=== PATIENT | female | born 1970 | race Caucasian/White ===

== ENCOUNTER 2024-03-24 21:59 | Emergency (ER) | payer OTHER ==
[~2024-03-24] VITALS: Ht 172.7 cm; Wt 85.3 kg
[2024-03-24] MEDS ORDERED: MECLIZINE HYD12.5 MG PO (22:21)
[2024-03-24] MEDS ORDERED: LEADER NATUR1000 MCG PO (22:23)
[2024-03-24] MEDS ORDERED: ASPIRIN ADULT L81 M2 PO (22:24)
[2024-03-24] MEDS ORDERED: ALBUTEROL SULFATE HF (22:24)
[2024-03-24] MEDS ORDERED: NATURE'S BLEND100 M2 PO (22:24)
[2024-03-24] MEDS ORDERED: AMLODIPINE BESYL5 MG PO (22:24)
[2024-03-24] MEDS ORDERED: VITAMIN D350 MCG PO (22:24)
[2024-03-24] MEDS ORDERED: Ondansetron Hydrochloride 4 MG TAB PO ONE (22:25)
[2024-03-24] MEDS ORDERED: FAMOTIDINE40 MG PO (22:25)
[2024-03-24] MEDS ORDERED: DULERA 100 MCG-13 GM INH (22:25)
[2024-03-24] MEDS ORDERED: ARIPIPRAZOLE5 MG PO (22:25)
[2024-03-24] MEDS ORDERED: LISINOPRIL40 MG PO (22:26)
[2024-03-24] MEDS ORDERED: JANUVIA100 MG PO (22:26)
[2024-03-24] MEDS ORDERED: HYDROCHLOROTHIA25 M1 PO (22:26)
[2024-03-24] MEDS ORDERED: SERTRALINE HYD100 MG PO (22:27)
[2024-03-24] MEDS ORDERED: ATORVASTATIN CA40 M1 PO (22:27)
[2024-03-24] MEDS ORDERED: TRAZODONE50 MG PO (22:27)
[2024-03-24] MEDS ORDERED: NON-ASPIRIN EX500 M1 PO (22:28)
[2024-03-24] MEDS ORDERED: MAGNESIUM CITRATE 296 ML BOT PO ONE (23:05)
== END 2024-03-24 23:49 | disposition home or self-care (01) ==
LOC: ED 21:59
DX: K59.00 Constipation, unspecified (principal); R42 Dizziness and giddiness; R51.9 Headache, unspecified; I10 Essential (primary) hypertension; K21.9 Gastro-esophageal reflux disease without esophagitis; E11.9 Type 2 diabetes mellitus without complications; Z91.030 Bee allergy status; Z88.2 Allergy status to sulfonamides; Z88.0 Allergy status to penicillin; Z79.899 Other long term (current) drug therapy; Z79.82 Long term (current) use of aspirin

== ENCOUNTER → 2024-04-24 | Outpatient (CLI) | payer OTHER ==
[~2024-04-24] MED LIST: ALBUTEROL SULFATE HF; AMLODIPINE BESYL5 MG PO; ARIPIPRAZOLE5 MG PO; ASPIRIN ADULT L81 M2 PO; ATORVASTATIN CA40 M1 PO; DULERA 100 MCG-13 GM INH; FAMOTIDINE40 MG PO; HYDROCHLOROTHIA25 M1 PO; JANUVIA100 MG PO; LEADER NATUR1000 MCG PO; LISINOPRIL40 MG PO; MECLIZINE HYD12.5 MG PO; NATURE'S BLEND100 M2 PO; NON-ASPIRIN EX500 M1 PO; SERTRALINE HYD100 MG PO; TRAZODONE50 MG PO; VITAMIN D350 MCG PO
[2024-04-24 11:59] LABS: BASO # 0.1 10*3/uL (0.0-0.1); EOS # 0.2 10*3/uL (0.0-0.4); EOS % 2.7 % (1.0-4.0); HEMATOCRIT 40.9 % (37.0-47.0); LYMPH # 2.3 10*3/uL (1.3-4.4); LYMPH % 32.2 % (27.0-41.0); MEAN CELL VOLUME 93.4 fl (81.0-99.0); MEAN CORPUSCULAR HGB 32.4 pg (27.0-31.0); MEAN CORPUSCULAR HGB CONC 34.7 g/dl (33.0-37.0); MEAN PLATELET VOLUME 10.9 fl (9.6-12.3); MONO # 0.5 10*3/uL (0.1-1.0); MONO % 6.8 % (3.0-9.0); PLATELET COUNT AUTOMATED 189 10*3/uL (130-400); RED BLOOD COUNT 4.38 10*6/uL (4.10-5.10); RED CELL DISTRI WIDTH 14.3 % (0-14.5)
[2024-04-24 12:06] LABS: URINE CREATININE RANDOM 40.49 mg/dL
[2024-04-24 12:23] LABS: BILIRUBIN Negative (Negative); BLOOD Negative (Negative); CLARITY Clear (Clear); COLOR Yellow (Yellow); GLUCOSE Negative (Negative); KETONE Negative (Negative); LEUKO ESTERASE Negative (Negative); NITRITE Negative (Negative); PH 5.5 (4.5-8.0); SPECIFIC GRAVITY <= 1.005 (1.001-1.030); UROBILINOGEN 0.2 E.U./dl (0.0-1.0)
[2024-04-24 12:37] LABS: RBC 0-2 rbc/hpf (0-2); WBC 0-2 wbc/hpf (0-5)
[2024-04-24 12:38] LABS: BUN 7 mg/dl (9-23); CHLORIDE 112 mmol/L (98-107); POTASSIUM 3.8 mmol/L (3.4-5.1)
== END | disposition home or self-care (01) ==
LOC: LAB 11:29
PROVIDERS: ATTEND Internal Medicine Nephrology
DX: E11.22 Type 2 diabetes mellitus with diabetic chronic kidney disease (principal); N17.9 Acute kidney failure, unspecified

== ENCOUNTER 2024-06-07 03:21 | Emergency (ER) | payer OTHER ==
[~2024-06-07] VITALS: Ht 203.2 cm; Wt 77.1 kg
[2024-06-07] MEDS ORDERED: Dexamethasone Sodium Phospha 20 MG/5 ML VIAL IM ONE (03:35)
[2024-06-07] MEDS ORDERED: diphenhydrAMINE hydrochloride 50 MG/ML VIAL IM ONE (03:35)
[2024-06-07] MEDS ORDERED: MEDROL DOSEPAK4 MG PO (04:02)
== END 2024-06-07 04:10 | disposition home or self-care (01) ==
LOC: ED 03:21
DX: L29.9 Pruritus, unspecified (principal); T42.6X5A Adverse effect of other antiepileptic and sedative-hypnotic drugs, initial encounter; I10 Essential (primary) hypertension; M19.90 Unspecified osteoarthritis, unspecified site; E11.9 Type 2 diabetes mellitus without complications; Z91.030 Bee allergy status; Z88.2 Allergy status to sulfonamides; Z88.0 Allergy status to penicillin; Y92.89 Other specified places as the place of occurrence of the external cause

== ENCOUNTER → 2024-06-18 | Outpatient (CLI) | payer OTHER ==
[~2024-06-18] MED LIST changes: +MEDROL DOSEPAK4 MG PO; +METHOCARBAMOL500 M1 PO; +VIBRAMYCIN100 MG PO
== END | disposition home or self-care (01) ==
LOC: RESCLI 01:37
PROVIDERS: ATTEND Internal Medicine
DX: T78.40XA Allergy, unspecified, initial encounter (principal); R55 Syncope and collapse; F32.9 Major depressive disorder, single episode, unspecified; G47.33 Obstructive sleep apnea (adult) (pediatric); B19.20 Unspecified viral hepatitis C without hepatic coma; J44.9 Chronic obstructive pulmonary disease, unspecified; F17.210 Nicotine dependence, cigarettes, uncomplicated; E78.5 Hyperlipidemia, unspecified; E11.9 Type 2 diabetes mellitus without complications; K21.9 Gastro-esophageal reflux disease without esophagitis; I10 Essential (primary) hypertension; Z88.0 Allergy status to penicillin; Z88.8 Allergy status to other drugs, medicaments and biological substances; Z91.041 Radiographic dye allergy status; Z79.899 Other long term (current) drug therapy; X58.XXXA Exposure to other specified factors, initial encounter

== ENCOUNTER → 2024-06-25 | Outpatient (CLI) | payer OTHER ==
[2024-06-25 15:13] LABS: BASO % 0.2 % (0.0-1.0); HEMATOCRIT 42.5 % (37.0-47.0); LYMPH # 1.1 10*3/uL (1.3-4.4); LYMPH % 9.8 % (27.0-41.0); MEAN CORPUSCULAR HGB 31.2 pg (27.0-31.0); MEAN CORPUSCULAR HGB CONC 33.9 g/dl (33.0-37.0); MEAN PLATELET VOLUME 11.2 fl (9.6-12.3); MONO # 0.2 10*3/uL (0.1-1.0); MONO % 1.6 % (3.0-9.0); NEUT # 9.4 10*3/uL (2.3-7.9); NEUT % 87.3 % (47.0-73.0); PLATELET COUNT AUTOMATED 198 10*3/uL (130-400); RED BLOOD COUNT 4.62 10*6/uL (4.10-5.10); RED CELL DISTRI WIDTH 12.8 % (0-14.5); WHITE BLOOD COUNT 10.8 10*3/uL (4.8-10.8)
[2024-06-25 15:14] LABS: BILIRUBIN Negative (Negative); BLOOD Negative (Negative); CLARITY Clear (Clear); COLOR Yellow (Yellow); GLUCOSE 3+ (Negative); KETONE Negative (Negative); LEUKO ESTERASE Negative (Negative); NITRITE Negative (Negative); PH 5.5 (4.5-8.0); UROBILINOGEN 0.2 E.U./dl (0.0-1.0)
[2024-06-25 15:29] LABS: WBC 0-2 wbc/hpf (0-5); YEAST TRACE
== END | disposition home or self-care (01) ==
LOC: LAB 14:49
PROVIDERS: ATTEND Internal Medicine Nephrology
DX: E11.22 Type 2 diabetes mellitus with diabetic chronic kidney disease (principal); N18.9 Chronic kidney disease, unspecified; N17.9 Acute kidney failure, unspecified

== ENCOUNTER 2024-06-28 20:15 | Emergency (ER) | payer OTHER ==
[~2024-06-28] VITALS: Ht 170.1 cm; Wt 83.9 kg
[~2024-06-28 20:15] MED LIST changes: -METHOCARBAMOL500 M1 PO; -VIBRAMYCIN100 MG PO
[2024-06-28 20:39] LABS: BILIRUBIN Negative (Negative); BLOOD Negative (Negative); CLARITY Clear (Clear); COLOR Yellow (Yellow); GLUCOSE Trace (Negative); KETONE Negative (Negative); LEUKO ESTERASE Trace (Negative); NITRITE Negative (Negative); PH 5.5 (4.5-8.0)
[2024-06-28 21:09] LABS: BACTERIA 1+
[2024-06-28] MEDS ORDERED: METHOCARBAMOL 500 MG TAB PO ONE (21:15)
[2024-06-28] MEDS ORDERED: METHOCARBAMOL500 M1 PO (21:25)
[2024-06-28] MEDS ORDERED: VIBRAMYCIN100 MG PO (21:25)
== END 2024-06-28 21:32 | disposition home or self-care (01) ==
LOC: ED 20:15
PROVIDERS: Internal Medicine
DX: S16.1XXA Strain of muscle, fascia and tendon at neck level, initial encounter (principal); L70.0 Acne vulgaris; I10 Essential (primary) hypertension; E11.9 Type 2 diabetes mellitus without complications; M19.90 Unspecified osteoarthritis, unspecified site; Z91.030 Bee allergy status; Z88.2 Allergy status to sulfonamides; Z88.0 Allergy status to penicillin; Z79.899 Other long term (current) drug therapy; X58.XXXA Exposure to other specified factors, initial encounter; Y93.89 Activity, other specified; Y92.009 Unspecified place in unspecified non-institutional (private) residence as the place of occurrence of the external cause; Y99.8 Other external cause status

== ENCOUNTER → 2024-07-27 | Outpatient (CLI) | payer OTHER ==
[~2024-07-27] MED LIST changes: +METHOCARBAMOL500 M1 PO; +VIBRAMYCIN100 MG PO
[2024-07-27 10:14] LABS: BASO # 0.1 10*3/uL (0.0-0.1); BASO % 0.7 % (0.0-1.0); EOS # 0.1 10*3/uL (0.0-0.4); EOS % 1.9 % (1.0-4.0); HEMATOCRIT 47.1 % (37.0-47.0); LYMPH % 26.1 % (27.0-41.0); MEAN CELL VOLUME 90.6 fl (81.0-99.0); MEAN CORPUSCULAR HGB 30.6 pg (27.0-31.0); MEAN CORPUSCULAR HGB CONC 33.8 g/dl (33.0-37.0); MEAN PLATELET VOLUME 10.7 fl (9.6-12.3); MONO # 0.5 10*3/uL (0.1-1.0); MONO % 6.6 % (3.0-9.0); NEUT # 4.8 10*3/uL (2.3-7.9); NEUT % 63.8 % (47.0-73.0); PLATELET COUNT AUTOMATED 176 10*3/uL (130-400); RED CELL DISTRI WIDTH 12.8 % (0-14.5); WHITE BLOOD COUNT 7.6 10*3/uL (4.8-10.8)
[2024-07-27 10:39] LABS: ALKALINE PHOSPHATASE 185 U/L (46-116); BUN 12 mg/dl (9-23); CHLORIDE 103 mmol/L (98-107); CHOLESTEROL 189 mg/dL (<200); LDL CHOLESTEROL 111 mg/dL (9-159); POTASSIUM 4.4 mmol/L (3.4-5.1); SGPT/ALT 54 U/L (5-49); TOTAL PROTEIN 7.5 gm/dL (6.0-8.0); TRIGLYCERIDES 141 mg/dl (<150)
== END | disposition home or self-care (01) ==
LOC: LAB 09:47
PROVIDERS: ATTEND Nurse Practitioner Family
DX: E11.9 Type 2 diabetes mellitus without complications (principal); R53.82 Chronic fatigue, unspecified; M25.50 Pain in unspecified joint; R55 Syncope and collapse; N19 Unspecified kidney failure; Z76.89 Persons encountering health services in other specified circumstances

== ENCOUNTER → 2024-08-12 | Outpatient (CLI) | payer OTHER ==
[2024-08-12 17:03] LABS: BILIRUBIN Negative (Negative); BLOOD Negative (Negative); CLARITY Clear (Clear); COLOR Yellow (Yellow); GLUCOSE Negative (Negative); KETONE Negative (Negative); LEUKO ESTERASE Negative (Negative); NITRITE Negative (Negative); SPECIFIC GRAVITY <= 1.005 (1.001-1.030); UROBILINOGEN 0.2 E.U./dl (0.0-1.0)
[2024-08-12 17:04] LABS: BASO # 0.1 10*3/uL (0.0-0.1); BASO % 0.8 % (0.0-1.0); EOS # 0.3 10*3/uL (0.0-0.4); EOS % 4.7 % (1.0-4.0); HEMATOCRIT 46.1 % (37.0-47.0); LYMPH # 2.8 10*3/uL (1.3-4.4); LYMPH % 39.4 % (27.0-41.0); MEAN CELL VOLUME 91.5 fl (81.0-99.0); MEAN CORPUSCULAR HGB 30.6 pg (27.0-31.0); MEAN CORPUSCULAR HGB CONC 33.4 g/dl (33.0-37.0); MEAN PLATELET VOLUME 11.3 fl (9.6-12.3); MONO # 0.4 10*3/uL (0.1-1.0); MONO % 6.2 % (3.0-9.0); NEUT # 3.4 10*3/uL (2.3-7.9); NEUT % 48.6 % (47.0-73.0); PLATELET COUNT AUTOMATED 191 10*3/uL (130-400); RED BLOOD COUNT 5.04 10*6/uL (4.10-5.10); RED CELL DISTRI WIDTH 12.8 % (0-14.5); WHITE BLOOD COUNT 7.1 10*3/uL (4.8-10.8)
[2024-08-12 17:09] LABS: BACTERIA TRACE; WBC 0-2 wbc/hpf (0-5)
[2024-08-12 17:10] LABS: URINE CREATININE RANDOM 17.71 mg/dL
[2024-08-12 17:28] LABS: BUN 10 mg/dl (9-23); CHLORIDE 108 mmol/L (98-107); POTASSIUM 4.1 mmol/L (3.4-5.1)
== END | disposition home or self-care (01) ==
LOC: LAB 16:16
PROVIDERS: ATTEND Internal Medicine Nephrology
DX: E11.22 Type 2 diabetes mellitus with diabetic chronic kidney disease (principal); N17.9 Acute kidney failure, unspecified; N18.9 Chronic kidney disease, unspecified

== ENCOUNTER 2025-02-11 08:48 | Emergency (ER) | payer OTHER ==
[~2025-02-11] VITALS: Ht 172.7 cm; Wt 87.5 kg
[~2025-02-11 08:48] MED LIST changes: -CETRAXAL1 EACH OT; -OMNICEF300 MG PO; -TOPAMAX15 M1 PO
[2025-02-11] MEDS ORDERED: TOPAMAX15 M1 PO (09:01)
[2025-02-11] MEDS ORDERED: CETRAXAL1 EACH OT (09:20)
[2025-02-11] MEDS ORDERED: Ketorolac Tromethamine 30 MG/ML VIAL IM ONE (09:20)
[2025-02-11] MEDS ORDERED: OMNICEF300 MG PO (09:20)
== END 2025-02-11 09:34 | disposition home or self-care (01) ==
LOC: ED 08:48
DX: H66.91 Otitis media, unspecified, right ear (principal); H60.91 Unspecified otitis externa, right ear; Z91.030 Bee allergy status; Z88.2 Allergy status to sulfonamides; Z88.0 Allergy status to penicillin; Z88.8 Allergy status to other drugs, medicaments and biological substances; Z79.899 Other long term (current) drug therapy

== ENCOUNTER → 2025-02-11 | Outpatient (CLI) | payer OTHER ==
[~2025-02-11] MED LIST changes: +CETRAXAL1 EACH OT; +OMNICEF300 MG PO; +TOPAMAX15 M1 PO
[2025-02-11 10:42] LABS: BASO % 0.5 % (0.0-1.0); EOS # 0.2 10*3/uL (0.0-0.4); EOS % 2.4 % (1.0-4.0); HEMATOCRIT 44.4 % (37.0-47.0); MEAN CELL VOLUME 88.6 fl (81.0-99.0); MEAN CORPUSCULAR HGB 29.9 pg (27.0-31.0); MEAN CORPUSCULAR HGB CONC 33.8 g/dl (33.0-37.0); MEAN PLATELET VOLUME 11.1 fl (9.6-12.3); MONO # 0.5 10*3/uL (0.1-1.0); NEUT # 5.6 10*3/uL (2.3-7.9); NEUT % 64.8 % (47.0-73.0); PLATELET COUNT AUTOMATED 157 10*3/uL (130-400); RED BLOOD COUNT 5.01 10*6/uL (4.10-5.10); RED CELL DISTRI WIDTH 13.1 % (0-14.5); WHITE BLOOD COUNT 8.7 10*3/uL (4.8-10.8)
[2025-02-11 10:51] LABS: BILIRUBIN Negative (Negative); BLOOD Negative (Negative); CLARITY Clear (Clear); COLOR Yellow (Yellow); GLUCOSE 3+ (Negative); KETONE Negative (Negative); LEUKO ESTERASE Negative (Negative); NITRITE Negative (Negative); PH 6.5 (4.5-8.0); SPECIFIC GRAVITY 1.025 (1.001-1.030)
[2025-02-11 11:19] LABS: BUN 10 mg/dl (9-23); CHLORIDE 106 mmol/L (98-107); POTASSIUM 3.8 mmol/L (3.4-5.1)
[2025-02-11 11:34] LABS: MUCOUS 1+
== END | disposition home or self-care (01) ==
LOC: LAB 10:00
PROVIDERS: ATTEND Internal Medicine Nephrology
DX: E11.22 Type 2 diabetes mellitus with diabetic chronic kidney disease (principal); N17.9 Acute kidney failure, unspecified

== ENCOUNTER 2025-03-31 18:18 | Emergency (ER) | payer OTHER ==
[~2025-03-31] VITALS: Ht 172.7 cm; Wt 83.0 kg
[~2025-03-31 18:18] MED LIST changes: +CETRAXAL1 EACH OT; +OMNICEF300 MG PO; +TOPAMAX15 M1 PO
[2025-03-31] MEDS ORDERED: MIRTAZAPINE7.5 MG PO (18:33)
[2025-03-31] MEDS ORDERED: VILAZODONE HCL40 M1 PO (18:33)
[2025-03-31] MEDS ORDERED: BUSPAR15 MG PO (18:33)
[2025-03-31] MEDS ORDERED: CHILDREN'S FLO5.9 ML INH (18:34)
[2025-03-31] MEDS ORDERED: Ipratropium Brom3 ML INH (18:34)
[2025-03-31] MEDS ORDERED: CYCLOBENZAPRINE5 M3 PO (18:34)
[2025-03-31] MEDS ORDERED: LINZESS145 MC1 PO (18:35)
[2025-03-31] MEDS ORDERED: HYDROXYZINE PAM50 MG PO (18:35)
[2025-03-31 19:23] LABS: BASO # 0.1 10*3/uL (0.0-0.1); BASO % 0.9 % (0.0-1.0); EOS # 0.3 10*3/uL (0.0-0.4); EOS % 3.4 % (1.0-4.0); HEMATOCRIT 44.4 % (37.0-47.0); MEAN CORPUSCULAR HGB 29.9 pg (27.0-31.0); MEAN CORPUSCULAR HGB CONC 33.6 g/dl (33.0-37.0); MEAN PLATELET VOLUME 10.5 fl (9.6-12.3); MONO # 0.5 10*3/uL (0.1-1.0); MONO % 6.6 % (3.0-9.0); NEUT # 3.7 10*3/uL (2.3-7.9); NEUT % 50.2 % (47.0-73.0); PLATELET COUNT AUTOMATED 205 10*3/uL (130-400); RED BLOOD COUNT 4.99 10*6/uL (4.10-5.10); RED CELL DISTRI WIDTH 13.7 % (0-14.5); WHITE BLOOD COUNT 7.4 10*3/uL (4.8-10.8)
[2025-03-31 19:43] LABS: BUN 7 mg/dl (9-23); CHLORIDE 110 mmol/L (98-107); POTASSIUM 3.6 mmol/L (3.4-5.1)
== END 2025-03-31 20:02 | disposition home or self-care (01) ==
LOC: ED 18:18
PROVIDERS: Nurse Practitioner Family
DX: R60.0 Localized edema (principal); I12.9 Hypertensive chronic kidney disease with stage 1 through stage 4 chronic kidney disease, or unspecified chronic kidney disease; E11.22 Type 2 diabetes mellitus with diabetic chronic kidney disease; N18.4 Chronic kidney disease, stage 4 (severe); R06.01 Orthopnea; M19.90 Unspecified osteoarthritis, unspecified site; G40.909 Epilepsy, unspecified, not intractable, without status epilepticus; Z91.030 Bee allergy status; Z88.2 Allergy status to sulfonamides; Z88.0 Allergy status to penicillin; Z88.8 Allergy status to other drugs, medicaments and biological substances; Z79.899 Other long term (current) drug therapy